=== PATIENT | male | born 1960 | race Caucasian/White ===

== ENCOUNTER → 2017-03-15 | Outpatient (CLI) | payer OTHER ==
[~2017-03-15] MED LIST: LODINE PO; LORTAB 7.5-5001 TAB PO
--- NOTE | ~2017-03-15 | MR17 ---
[facility] A Service of [facility] & [facility] RADIOLOGY TEXT RESULTS PATIENT: BERENICE RIVAS LOCATION: [facility] : 64 UNIT #: [id number] AGE: [address]: Ronaldo Licona II, MD SEX: M ORDER DR: [id number] [address] [address] [id number] O MR#: [id number] Acc #: [id number] NAME: BERENICE RIVAS : 1960 SEX: M STUDY DATE/TIME: 03/15/2017 14:11 UNIT: [facility] ROOM: STUDY DESCRIPTION: MR Brain WWo Contrast Attending Physician: Ronaldo Licona II., M.D. Referring Physician: Ronaldo Licona II., M.D. Ordering Physician: Ronaldo Licona II., M.D. Primary Care Physician: Gamal Hester M.D. MRI CENTER REPORT This report is preliminary unless electronic signature is present. EXAM MRI brain with and without. HISTORY Followup cavernous angioma, annual followup. No complaints per patient. Patient on a chemotherapy pill, but he does not indicate type of malignancy. Please correlate with history. TECHNIQUE MRI of the brain was performed following the intravenous administration of 7 cc of MultiHance using 1.52 wide boar imaging technique. COMPARISON From 02/21/2016. FINDINGS There is no evidence for a recent ischemic insult on the diffusion series. Re-demonstrated in a cavernous angioma in the left posteromedial frontal cortex, which has bled in the past but there is nothing to suggest interval re-hemorrhage. It is stable and measures about 1.2 cm in diameter. There is no extraaxial fluid collection. The major arterial intracranial flow voids are maintained. There is some vertebrobasilar ductal ectasia. There is a small amount of fluid or inflammatory change in the right mastoid tip and paranasal sinus disease, including an air fluid level in the left maxillary sinus, consistent with a component of peak sinusitis. Otherwise minimal nonspecific white matter disease within the range of normal for age group. Following contrast administration, enhancement pattern is as expected with respect to the cavernous angioma. Otherwise no pathologic intracranial enhancement is suspected. There is no intracranial mass effect. IMPRESSION 1. Re-demonstration of the patient's known cavernous angioma at the [facility] A Service of [facility] RADIOLOGY TEXT RESULTS PATIENT: BERENICE RIVAS LOCATION: [facility] : 64 UNIT #: [id number] AGE: [address]: Ronaldo Licona II, MD SEX: M ORDER DR: posteromedial aspect of the left frontal lobe. It is stable without evidence for interval re-hemorrhage, though there is clearly evidence of hemorrhage in the past. 2. Otherwise essentially normal MRI of the brain with and without contrast for age group. 3. There is sinus disease including a moderate sized air fluid level in the left maxillary sinus, consistent with a component of acute sinusitis. This is new from the study from 2016. Milder involvement of the right maxillary sinus and ethmoid air cells noted. Please correlate further clinically. A small amount of fluid or inflammatory change of the right mastoid tip. Dictated by... Gwendolyn Rouse M.D. THIS IS AN ELECTRONICALLY VERIFIED REPORT Gwendolyn Rouse M.D. at 03/16/2017 5:52 PM SAC/gz TD: 03/16/2017 14:36 JOB #: [id number] MRI CENTER REPORT Page 1 of 1
== END | disposition home or self-care (01) ==
LOC: SMRI 03-08 13:00
DX: D18.02 Hemangioma of intracranial structures (principal); J32.0 Chronic maxillary sinusitis
CPT/HCPCS: 70553; A9581